=== PATIENT | female | born 1990 | race African-American/Black ===

== ENCOUNTER 2020-07-29 13:12 | Emergency (ER) | payer SELFPAY ==
[~2020-07-29] VITALS: Ht 170.2 cm; Wt 135.5 kg
[2020-07-29 13:26] VITALS: BP 122/77
[2020-07-29] MEDS ORDERED: CLIN150C14 PO (13:29)
[2020-07-29 13:52] LABS: MICROSCOPIC AUTO
[2020-07-29 14:44] LABS: BASOPHILS % (AUTO) 1 % (0-1); EOSINOPHILS % (AUTO) 2 % (1-7); LYMPHOCYTES % (AUTO) 25 % (22-44); MEAN CORPUSCULAR HEMOGLOBIN 26.4 pg (27.0-34.8); MEAN CORPUSCULAR HGB CONC 32.3 g/dL (32.4-35.8); MEAN PLATELET VOLUME 9.4 fL (7.4-10.4); MONOCYTES % (AUTO) 12 % (2-9); NEUTROPHILS % (AUTO) 60 % (42-75); PLATELET COUNT 256 x10^3/uL (130-400); RED BLOOD COUNT 4.77 x10^6/uL (3.82-5.3); RED CELL DISTRIBUTION WIDTH 14.5 % (9.6-15.2)
[2020-07-29 14:47] LABS: MD NO
== END 2020-07-29 16:31 | disposition home or self-care (01) ==
LOC: ED 16:20
DX: O23.11 Infections of bladder in pregnancy, first trimester (principal); R10.30 Lower abdominal pain, unspecified; Z3A.08 8 weeks gestation of pregnancy
CPT/HCPCS: 36415; 76801; 81001; 84702; 85025; 87086; 99284